=== PATIENT | female | born 1985 ===

== ENCOUNTER → 2021-09-20 10:38 | Outpatient (CLI) | payer OTHER, SELFPAY ==
[2021-09-20 12:32] LABS: COVID19 -Nasal RAPID Negative (Negative)
== END ==
PROVIDERS: PCP Family Medicine; Visit Provider Nurse Practitioner Family
DX: Z20.822 Contact with and (suspected) exposure to COVID-19 (principal)
CPT/HCPCS: 87635

== ENCOUNTER 2021-09-21 11:52 | Day surgery (SDC) | payer OTHER, SELFPAY ==
[2021-09-14 14:22] VITALS: BMI 26.1
--- NOTE | 2021-09-21 | PATH_ITS ---
[facility] Accession Number: [id number] . 01 Material submitted: . 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 01 Clinical history: . LEFT THIRD INTERSPACE NEUROMA EXCISION . 01 Diagnosis: Third Interspace Left Foot, Excision: Fibroadipose and synovial tissue with prominent peripheral nerve bundles, consistent with neuroma. MRV 09/26/2021 1005 Local . 01 Electronically signed: . Ramesh Cordero MD, Dermatopathologist NPI- [id number] . 01 Gross description: . The specimen is received in formalin labeled third interspace neuroma left foot and consists of three maldonado-pink fragments of soft tissue measuring 2.0 x 1.0 x 0.5 cm in aggregate. The margins are inked blue and the specimen is entirely submitted in cassette A1. ([id number]) /[facility] 09/22/2021 1759 Local . 01 Pathologist provided ICD-10: G57.62 . 01 CPT . 705115 Performed at: 01 [facility] [address] [place] [address] [id number] MD Jelani De Leon MD Phone: [phone]
[2021-09-21 12:59] VITALS: BP 114/78; PULSE 69; RESP 16; TEMP 36.4; O2SAT 99; BMI 27.6
[2021-09-21] MEDS: ACETAMINOPHEN 325 MG TABLET 975 MG PO (13:25)
[2021-09-21] MEDS: GABAPENTIN 300 MG CAPSULE PO (13:25)
[2021-09-21] MEDS: SCOPOLAMINE 1 PATCH TOP (13:25)
[2021-09-21] MEDS: LACTATED RINGERS 1,000 ML 42 ML IV (13:25)
--- NOTE | 2021-09-21 14:39 | PM.PREOP ---
Pre-operative Note COVID-19 COVID-19 status: Negative Result date/Date tested (Pos, Neg/Pending): 09/20/21 Interval Note History & Physical reviewed/Exam performed by Physician: Yes Changes to H&P: No
--- NOTE | 2021-09-21 14:40 | PM.OP.1 ---
Operative Date/Time/Diagnoses Date of procedure: 09/21/21 Time of procedure: 14:40 Pre-op diagnosis: Left third interspace neuroma Post-op diagnosis: same Procedure & Clinicians Procedure: Left third interspace neuroma excision (93942) Same procedure as scheduled: Yes Indications: 35-year-old female with painful symptoms consistent with neuroma to the left 3rd interspace. Conservative measures have failed to alleviate her pain and she wished to have surgical intervention at this time. We spoke the risks, potential complications, as well as expected outcomes and alternatives. Consent was signed, no contraindications to the procedure at this time. Surgeon: Tanisha Caruso Click Yes if Unassisted: Yes Anesthesia Type: MAC +/- and Sedation Operative Notes Closure Type: primary Specimen(s): other (Nerve tissue consistent with neuroma left 3rd interspace of foot.) Estimated Blood Loss (mL): 10 Blood products transfused: none Tourniquet time (min): 18 Procedure in detail: The patient was brought to the operating room and placed on the operating table in the supine position. The tourniquet was placed about the left ankle. Well padded appropriately aligned. After induction of mild iv sedation, local anesthesia was obtained to the foot. The foot and ankle were prepped and draped in the usual aseptic manner. The tourniquet was inflated. After check of anesthesia, an incision was made over the dorsal third interspace of the left foot. The incision was deepened through subcutaneous tissues, being careful to identify and retract all vital neural and vascular structures. All bleeders were cauterized and ligated as necessary. The deep transverse intermetatarsal ligament was cleanly resected and this allowed visualization of the underlying interspace. After being careful to identify a tendinous and ligamentous structures as well as arterial, I was able to note the white shiny tissue of the nerve. It was moderately enlarged and upon direct manipulation there was a response of reflexive tenderness. After verification of anesthesia, the nerve was cleanly resected at its most proximal aspect allowing it to retract into the musculature and the 2 distal locations as it fed into the digits. The area was irrigated with copious amounts of normal sterile saline. The specimen was passed from the table and sent to pathology for identification. The interspace was verified to show no additional nerve tissue and 4-0 Vicryl was used to repair subcutaneous tissues. The tourniquet was deflated, a prompt hyperemic response was seen to the foot. Skin closure performed using 4-0 nylon. The area was dressed with a lightly compressive sterile dressing including Adaptic, 4x4s, conform, and Coban. She was placed in stockinette and her post op shoe and transferred to the PACU with vital signs stable and vascular status intact. Post-operative Condition: stable Disposition: PACU Plan for aftercare: Following a period of postoperative monitoring, the patient will be discharged to home on written and oral postoperative instructions including keeping the dressing dry and intact, avoiding significant ambulation on the foot, elevating the foot when seated home. DVT prevention techniques have been reviewed. For the 1st postoperative visit the dressing will be changed and close to the 3rd postoperative week we will likely remove the sutures.
[2021-09-21] MEDS: CEFAZOLIN 1 GM VIAL 2 GM IV (14:54)
--- NOTE | 2021-09-21 15:02 | SUR.OPER ---
Supine on padded OR bed, head on pillow, arms secured on padded arm boards at <90 degrees abduction, legs uncrossed, safety belt across abdomen, tape over blanket over nonoperative ower leg.
[2021-09-21] MEDS: BUPIVACAINE 0.5% (PF) VIAL 30 ML INJ (15:32)
[2021-09-21] MEDS: LIDOCAINE 2% INJ SDV 5 ML INJ (15:32)
[2021-09-21 15:58] VITALS: BP 112/72; PULSE 64; RESP 10; TEMP 36.2; O2SAT 100
[2021-09-21 16:13] VITALS: BP 119/82; BP 134/89; PULSE 55; PULSE 63; RESP 14; RESP 16; O2SAT 100; O2SAT 63
[2021-09-21 16:22] VITALS: BP 115/80; PULSE 67; RESP 13; O2SAT 100
[2021-09-21 16:25] VITALS: BP 139/90; PULSE 66; RESP 10; TEMP 36.2; O2SAT 100
[2021-09-21 16:51] VITALS: BP 139/79; PULSE 80; RESP 166; O2SAT 99
== END 2021-09-21 16:53 | disposition home or self-care (01) ==
PROVIDERS: Referring Provider Family Medicine; Visit Provider Podiatrist
PROC: (CPT 64782; principal; 2021-09-21 13:15)
DX: G57.62 Lesion of plantar nerve, left lower limb (principal)
CPT/HCPCS: 28080; J0690; J1100; J1885; J2250; J2405; J2704; J3010